=== PATIENT | female | born 1975 | race Hispanic/Latino ===

== ENCOUNTER 2018-10-12 13:55 | Emergency (ER) | payer BC ==
[~2018-10-12] VITALS: Ht 167.6 cm; Wt 93.0 kg
[~2018-10-12 13:55] MED LIST: DIOVAN160 MG PO
[2018-10-12 14:38] LABS: HEMOGLOBIN 12.7 g/dl (12.0-16.0); IMMATURE GRANULOCYTES 0.9 % (0.0-5.0); MEAN CELL VOLUME 93.1 fL CALC (80.0-100.0); MEAN CORPUSCULAR HGB 31.1 pG CALC (26.0-32.0); MEAN CORPUSCULAR HGB CONC 33.4 g/L CALC (32.0-36.0); NEUT# 7.25 thou/uL (2.00-7.15); RED BLOOD COUNT 4.08 mill/uL (4.20-5.60); RED CELL DISTRI WIDTH 13.2 % (11.5-15.5)
[2018-10-12 14:41] LABS: URINE BILIRUBIN - DIPSTICK NEGATIVE (NEGATIVE); URINE BLOOD DIPSTICK NEGATIVE (NEGATIVE); URINE COLOR YELLOW; URINE GLUCOSE - DIPSTICK NEGATIVE (NEGATIVE); URINE KETONE NEGATIVE (NEGATIVE); URINE LEUK ESTERASE NEGATIVE (NEGATIVE); URINE NITRITE - DIPSTICK NEGATIVE (Negative); URINE PH 6.5 (4.5-8.0); URINE PROTEIN - DIPSTICK NEGATIVE (NEG-TRACE); URINE SPECIFIC GRAVITY 1.025; URINE UROBILINOGEN - DIPSTICK 0.2 E.U./dL (0.2)
[2018-10-12 14:49] LABS: ALBUMIN 4.5 g/dL (3.2-5.0); ALKALINE PHOSPHATASE 48 u/l (38-126); AMYLASE 60 u/l (30-110); ANION GAP 16 (6-22 (CALC)); BILIRUBIN, TOTAL 0.7 mg/dL (0.0-1.4); BUN 14 mg/dL (7-17); BUN/CREATININE RATIO 17 (12-20 (CALC)); CARBON DIOXIDE 25 mmol/l (22-30); CHLORIDE 102 mmol/l (95-108); CREATININE 0.8 mg/dL (0.5-1.0); GFR > 60 ML/MIN (>=60 (CALC)); GFR FOR AFR.AMER. > 60 ML/MIN (>=60 (CALC)); LIPASE 113 u/l (23-300); POTASSIUM 4.6 mmol/l (3.5-5.1); SGOT/AST 30 u/l (14-36); SODIUM 138 mmol/l (137-146); TOTAL PROTEIN 7.6 g/dL (6.3-8.2)
[2018-10-12] MEDS ORDERED: TELMISARTAN40 MG PO (15:09)
[2018-10-12] MEDS ORDERED: MAXZIDE PO (15:10)
[2018-10-12] MEDS ORDERED: TRAMADOL HYDROC50 MG PO (16:28)
[2018-10-12 16:40] VITALS: BP 117/73
== END 2018-10-12 16:40 | disposition home or self-care (01) | DRG 446 ==
LOC: ED 13:55
DX: K80.20 Calculus of gallbladder without cholecystitis without obstruction (principal); R10.11 Right upper quadrant pain; R10.13 Epigastric pain; R11.0 Nausea; R19.7 Diarrhea, unspecified
CPT/HCPCS: Q9967

== ENCOUNTER 2018-11-04 21:00 | Emergency (ER) | payer OTHER, BC ==
[~2018-11-04] VITALS: Ht 170.2 cm; Wt 100.0 kg
[~2018-11-04 21:00] MED LIST changes: +MAXZIDE PO; +TELMISARTAN40 MG PO; +TRAMADOL HYDROC50 MG PO
[2018-11-04 21:43] LABS: HEMATOCRIT 39.6 % (37.0-47.0); HEMOGLOBIN 13.5 g/dl (12.0-16.0); IMMATURE GRANULOCYTES 0.6 % (0.0-5.0); MEAN CELL VOLUME 90.8 fL CALC (80.0-100.0); MEAN CORPUSCULAR HGB CONC 34.1 g/L CALC (32.0-36.0); NEUT# 8.43 thou/uL (2.00-7.15); RED BLOOD COUNT 4.36 mill/uL (4.20-5.60); RED CELL DISTRI WIDTH 12.6 % (11.5-15.5)
[2018-11-04 22:00] LABS: ALBUMIN 4.9 g/dL (3.2-5.0); ALKALINE PHOSPHATASE 56 u/l (38-126); ANION GAP 17 (6-22 (CALC)); BILIRUBIN, TOTAL 0.6 mg/dL (0.0-1.4); BUN 19 mg/dL (7-17); BUN/CREATININE RATIO 22 (12-20 (CALC)); CARBON DIOXIDE 22 mmol/l (22-30); CHLORIDE 104 mmol/l (95-108); CREATININE 0.9 mg/dL (0.5-1.0); GFR > 60 ML/MIN (>=60 (CALC)); GFR FOR AFR.AMER. > 60 ML/MIN (>=60 (CALC)); SGOT/AST 25 u/l (14-36); SODIUM 140 mmol/l (137-146); TOTAL PROTEIN 7.9 g/dL (6.3-8.2)
[2018-11-04 22:14] LABS: POTASSIUM 3.3 mmol/l (3.5-5.1)
[2018-11-05] MEDS ORDERED: NAPROSYN500 MG PO (00:23)
[2018-11-05 00:49] VITALS: BP 139/86
== END 2018-11-05 00:50 | disposition home or self-care (01) | DRG 552 ==
LOC: ED 21:00
PROVIDERS: Emergency Medicine
DX: S13.9XXA Sprain of joints and ligaments of unspecified parts of neck, initial encounter (principal); R10.31 Right lower quadrant pain; V43.52XA Car driver injured in collision with other type car in traffic accident, initial encounter; Y92.414 Local residential or business street as the place of occurrence of the external cause
CPT/HCPCS: Q9967